=== PATIENT | male | born 1945 | race African-American/Black ===

== ENCOUNTER 2017-03-10 17:45 | Emergency (ER) | payer OTHER ==
[2017-03-10 17:54] VITALS: BP 144/92; PULSE 71; TEMP 98; BMI 21.9
[2017-03-10] MEDS ORDERED: amLODIPine BESYLATE 10 MG TABLET (FP) PO ONE (19:36)
--- NOTE | 2017-03-10 19:37 | PDOC ---
History of Present Illness - General History Source: Patient Exam Limitations: No Limitations - History of Present Illness Initial Comments: 03/10/17 20:46 The patient is a 71-year-old male with a significant past medical history of hypertension, and presents to the emergency department with headache for 4 days. He reports he ran out of medication for his hypertension 4 days ago. He states that the headache is located in the frontal aspect, is sharp in nature, and he denies any radiation of the pain. He denies any visual changes, but reports sensitivity to light since his headache started. He also reports more tearing than usual concomitant with the headache. He states that he took Tylenol on 4 days ago and today with mild relief of symptoms. The patient denies chest pain, shortness of breath, and dizziness. The patient denies fever, chills, nausea, vomit, diarrhea and constipation. The patient denies dysuria, frequency, urgency and hematuria. Allergies: NKDA Past Surgical History: None reported Social History: Former smoker (35 years) quit in 2009, recreational use of ETOH , no drug use PCP: Dr. Sofi Tom ([facility]) <Jane Ruiz - Last Filed: 03/10/17 20:50> <Olive García - Last Filed: 03/12/17 02:32> - General Chief Complaint: Headache Stated Complaint: SEVERE HEADACHE Time Seen by Provider: 03/10/17 19:09 Past History <Jane Ruiz - Last Filed: 03/10/17 20:50> - Past Medical History HTN: Yes - Psycho/Social/Smoking Cessation Hx Anxiety: No Suicidal Ideation: No Smoking History: Never smoked Hx Alcohol Use: No Drug/Substance Use Hx: No Substance Use Type: None <Olive García - Last Filed: 03/12/17 02:32> - Past Medical History Allergies/Adverse Reactions: Allergies Allergy/AdvReac Type Severity Reaction Status Date / Time No Known Allergies Allergy Verified 03/10/17 17:53 Home Medications: Ambulatory Orders Amlodipine Besylate 10 mg PO DAILY 03/10/17 Amlodipine Besylate 10 mg PO DAILY #30 tablet 03/10/17 Review of Systems - Review of Systems Able to Perform ROS?: Yes Comments:: 03/10/17 20:46 CONSTITUTIONAL: Absent: fever, chills, diaphoresis, generalized weakness, malaise, loss of appetite HEENT: Present: (+) photophobia Absent: rhinorrhea, nasal congestion, throat pain, throat swelling, difficulty swallowing, mouth swelling, ear pain, eye pain CARDIOVASCULAR: Absent: chest pain, syncope, palpitations, irregular heart rate, lightheadedness , peripheral edema RESPIRATORY: Absent: cough, shortness of breath, dyspnea with exertion, orthopnea, wheezing, stridor, hemoptysis GASTROINTESTINAL: Absent: abdominal pain, abdominal distension, nausea, vomiting, diarrhea, constipation, melena, hematochezia GENITOURINARY: Absent: dysuria, frequency, urgency, hesitancy, hematuria, flank pain, genital pain MUSCULOSKELETAL: Absent: myalgia, arthralgia, joint swelling SKIN: Absent: rash, itching, pallor HEMATOLOGIC/IMMUNOLOGIC: Absent: easy bleeding, easy bruising, lymphadenopathy, frequent infections ENDOCRINE: Absent: unexplained weight gain, unexplained weight loss, heat intolerance, cold intolerance NEUROLOGIC: Present: (+) headache Absent: focal weakness or paresthesias, dizziness, unsteady gait, seizure, mental status changes, bladder or bowel incontinence PSYCHIATRIC: Absent: anxiety, depression, suicidal or homicidal ideation, hallucinations. <Jane Ruiz - Last Filed: 03/10/17 20:50> *Physical Exam - Vital Signs Last Vital Signs Temp Pulse Resp BP Pulse Ox 98.0 F 71 20 144/92 99 03/10/17 17:50 03/10/17 17:50 03/10/17 17:50 03/10/17 17:50 03/10/17 17:50 - Physical Exam Comments: 03/10/17 20:50 GENERAL: Well developed, well nourished. Awake and alert. No acute distress. HEENT: Normocephalic, atraumatic. PERRLA, EOMI. No conjunctival pallor. (+) Sclera are minimally yellow. Moist mucous membranes. Oropharynx is clear. NECK: Supple. Full ROM. No JVD. Carotid pulses 2+ and symmetric, without bruits. No thyromegaly. No lymphadenopathy. CARDIOVASCULAR: Regular rate and rhythm. No murmurs, rubs, or gallops. Distal pulses are 2+ and symmetric. PULMONARY: No evidence of respiratory distress. Lungs clear to auscultation bilaterally. No wheezing, rales or rhonchi. ABDOMINAL: (+) Abdomen taut. Non-tender. Non-distended. No rebound or guarding. No organomegaly. Normoactive bowel sounds. MUSCULOSKELETAL Normal range of motion at all joints. No bony deformities or tenderness. No CVA tenderness. EXTREMITIES: No cyanosis. No clubbing. No edema. No calf tenderness. SKIN: Warm and dry. Normal capillary refill. No rashes. No jaundice. NEUROLOGICAL: Alert, awake, appropriate. Cranial nerves 2-12 intact. No deficits to light touch and temperature in face, upper extremities and lower extremities. No motor deficits in the in face, upper extremities and lower extremities. Normoreflexic in the upper and lower extremities. Normal speech. Toes are down- going bilaterally. Gait is normal without ataxia. PSYCHIATRIC: Cooperative. Good eye contact. Appropriate mood and affect. <Jane Ruiz - Last Filed: 03/10/17 20:50> - Vital Signs Last Vital Signs Temp Pulse Resp BP Pulse Ox 98.0 F 71 20 144/92 99 03/10/17 17:50 03/10/17 17:50 03/10/17 17:50 03/10/17 17:50 03/10/17 17:50 <Olive García - Last Filed: 03/12/17 02:32> ED Treatment Course - LABORATORY CBC & Chemistry Diagram: 03/10/17 19:58 03/10/17 19:58 - ADDITIONAL ORDERS Additional order review: Laboratory Results 03/10/17 19:58 Sodium 141 Potassium 4.3 Chloride 106 Carbon Dioxide 28 Anion Gap 7 L BUN 13 Creatinine 1.2 Creat Clearance w eGFR 59.86 Random Glucose 110 H Calcium 8.8 Total Bilirubin 0.2 AST 38 H ALT 36 Alkaline Phosphatase 144 H Total Protein 8.0 Albumin 3.7 03/10/17 19:58 RBC 4.31 MCV 88.6 MCHC 32.1 RDW 12.4 MPV 7.9 Neutrophils % 51.5 Lymphocytes % 37.8 Monocytes % 9.1 Eosinophils % 1.1 Basophils % 0.5 - Medications Given in the ED: ED Medications Discontinued Medications Generic Name Dose Route Start Last Admin Trade Name Freq PRN Reason Stop Dose Admin Amlodipine Besylate 10 mg 03/10/17 19:36 03/10/17 20:04 Norvasc - PO 03/10/17 19:37 10 mg ONCE ONE Administration Ibuprofen 600 mg 03/10/17 19:40 03/10/17 20:04 Motrin - PO 03/10/17 19:41 600 mg ONCE ONE Administration <Jane Ruiz - Last Filed: 03/10/17 20:50> - LABORATORY CBC & Chemistry Diagram: 03/10/17 19:58 03/10/17 19:58 <Olive García - Last Filed: 03/12/17 02:32> Medical Decision Making - Medical Decision Making 03/12/17 02:30 Patient Name: Stoney Saini THIS IS A PRELIMINARY REPORT FROM [facility] EXAM: CT head without contrast IMAGES: 167 DATE OF SERVICE: 2017-03-10 21:42: 07.0 HISTORY:Headache since Sunday in the right frontal region. COMPARISON: None. FINDINGS: 1. There is a small area of low attenuation in the cortex and subcortical white matter of the right occipital lobe. This may represent infarct of indeterminate age. There is a small area of low attenuation in the subcortical white matter of the left occipital lobe of indeterminate etiology.. There is no evidence of intracranial hemorrhage or significant mass effect. There is atherosclerotic vascular calcification of the internal carotid arteries bilaterally at the skull base. 2. Ventricular size is concordant with the degree of atrophy. 3. The visualized portions of the orbits, paranasal and mastoid sinuses are unremarkable. If there is no clinical contraindication, MRI brain may be helpful for further evaluation. THIS DOCUMENT HAS BEEN ELECTRONICALLY SIGNED Pt is aware of his CT results. He will be sent out with a copy of his results and asked to follow with PMD to get MRI as an outpatient. Pt's exam is normal. He is feeling better in the ER after receiving his amlodipine. I ordered him a 1 month supply of meds for HTN. He will follow with PD. Neuro exam normal, and pt is stable for discharge. <Olive García - Last Filed: 03/12/17 02:32> *DC/Admit/Observation/Transfer - Attestations Scribe Attestion: 03/10/17 20:47 Documentation prepared by Jane Ruiz, acting as director medical science for Olive García MD. <Jane Ruiz - Last Filed: 03/10/17 20:50> - Discharge Dispostion Admit: No <Olive García - Last Filed: 03/12/17 02:32> Diagnosis at time of Disposition: Headache, Medication refill - Discharge Dispostion Disposition: HOME Condition at time of disposition: Improved - Prescriptions Prescriptions: Amlodipine Besylate 10 mg PO DAILY #30 tablet - Referrals Referrals: Sofi Tom [Primary Care Provider] - - Patient Instructions Printed Discharge Instructions: DI for Headache
[2017-03-10] MEDS ORDERED: IBUPROFEN 600 MG TABLET (FP) PO ONE ×2 (19:40→19:46)
[2017-03-10] MEDS ORDERED: amLODIPine BESYLATE 5 MG TABLET (FP) ONE (19:46)
[2017-03-10 20:02] LABS: BASOPHIL 0.5 % (0-2.0); EOSINOPHIL 1.1 % (0-4.5); MCH 28.4 pg (25.7-33.7); MCHC 32.1 g/dl (32.0-35.9); MEAN CELL VOLUME 88.6 fl (80-96); MEAN PLT VOLUME 7.9 fl (7.5-11.1); NEUTROPHILS 51.5 % (42.8-82.8); PLATELET COUNT 248 K/MM3 (134-434); RDW 12.4 % (11.9-15.9); WHITE BLOOD COUNT 4.8 K/mm3 (4.0-10.0)
[2017-03-10 20:29] LABS: ALBUMIN 3.7 g/dl (3.4-5.0); ALK PHOS 144 U/L (45-117); ANION GAP 7 (8-16); BILIRUBIN,TOTAL 0.2 mg/dL (0.2-1.0); CALCIUM 8.8 mg/dL (8.5-10.1); CO2 28 mmol/L (21-32); CREATININE 1.2 mg/dL (0.7-1.3); GLUCOSE,RANDOM 110 mg/dL (74-106); SGOT/AST 38 U/L (15-37); SGPT/ALT 36 U/L (12-78)
--- NOTE | 2017-03-11 17:24 | EKG ---
Test Reason : Blood Pressure : / mmHG Vent. Rate : 059 BPM Atrial Rate : 059 BPM P-R Int : 138 ms QRS Dur : 084 ms QT Int : 404 ms P-R-T Axes : 050 011 208 degrees QTc Int : 399 ms SINUS BRADYCARDIA ABNORMAL ECG NO PREVIOUS ECGS AVAILABLE Confirmed by IZZY KRAUSE MD ([id number]) on 03/11/2017 5:24:34 PM Referred By: Confirmed By:IZZY KRAUSE MD
== END 2017-03-11 00:45 | disposition home or self-care (01) ==
LOC: JER 17:45
DX: R51 Headache (principal)
CPT/HCPCS: 36415; 70450-TC; 71020-TC; 80053; 85025; 85651; 93005; 93010; 99282-25

== ENCOUNTER 2020-11-23 05:29 | Day surgery (SDC) | payer OTHER ==
[2020-11-18 15:18] VITALS: BMI 22.6
[2020-11-23 12:57] VITALS: TEMP 97
[2020-11-23 13:10] VITALS: PULSE 65
[2020-11-23 14:01] VITALS: BP 127/68
== END 2020-11-23 14:23 | disposition home or self-care (01) ==
LOC: JASU-ENDO 05:29
PROVIDERS: ATTEND Internal Medicine Gastroenterology
PROC: 0DBL8ZX Excision of Transverse Colon, Via Natural or Artificial Opening Endoscopic, Diagnostic (ICD-10-PCS; 2020-11-23)
PROC: 0DBN8ZX Excision of Sigmoid Colon, Via Natural or Artificial Opening Endoscopic, Diagnostic (ICD-10-PCS; 2020-11-23)
PROC: 0DBM8ZX Excision of Descending Colon, Via Natural or Artificial Opening Endoscopic, Diagnostic (ICD-10-PCS; principal; 2020-11-23 10:30)
DX: Z12.11 Encounter for screening for malignant neoplasm of colon (principal); D12.3 Benign neoplasm of transverse colon; D12.4 Benign neoplasm of descending colon; D12.5 Benign neoplasm of sigmoid colon; K55.20 Angiodysplasia of colon without hemorrhage; K59.89 Other specified functional intestinal disorders; K64.8 Other hemorrhoids
CPT/HCPCS: 88305-TC